=== PATIENT | female | born 1965 | race Caucasian/White ===

== ENCOUNTER 2018-01-18 06:26 | Day surgery (SDC) | payer OTHER ==
[2018-01-18] MEDS ORDERED: PROPOFOL 60 ML (08:42)
[2018-01-18] MEDS ORDERED: LIDOCAINE 2% (SDV) 5 ML INJ (08:42)
== END 2018-01-18 11:09 | disposition home or self-care (01) ==
LOC: GIL 06:26
DX: Z12.11 Encounter for screening for malignant neoplasm of colon (principal); D12.2 Benign neoplasm of ascending colon; K64.4 Residual hemorrhoidal skin tags; E11.9 Type 2 diabetes mellitus without complications; I10 Essential (primary) hypertension
CPT/HCPCS: 45385; 82962; 88305